=== PATIENT | female | born 1995 | race Caucasian/White ===

== ENCOUNTER 2017-08-09 18:36 | Emergency (ER) | payer OTHER, SELFPAY ==
--- NOTE | 2017-08-09 21:16 | ER ---
Nurse's Notes [facility] Name: Gale Ga Age: 22 yrs Sex: Female : 1995 Arrival Date: 08/09/2017 Time: 18:40 Bed Waiting Private MD: None, None Diagnosis: Presentation: 08/09 18:43 Presenting complaint: Patient states: upper and middle back pain that started today sv after lifting trash at work. Transition of care: patient was not received from another setting of care. Onset of symptoms was August 09, 2017. Risk Assessment: Do you want to hurt yourself or someone else? Patient reports no desire to harm self or others. Initial Sepsis Screen: Does the patient meet any 2 criteria? No. Patient's initial sepsis screen is negative. Does the patient have a suspected source of infection? No. Patient's initial sepsis screen is negative. Care prior to arrival: None. 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 - Social history:: Smoking status: Patient/guardian denies using tobacco. - Ebola Screening: : No symptoms or risks identified at this time. Vital Signs: 18:44 BP 108 / 64; Pulse 67; Resp 18; Temp 98.7; Pulse Ox 99% ; Weight 63.5 kg; Height 5 ft. sv 4 in. (162.56 cm); 18:44 Body Mass Index 24.03 (63.50 kg, 162.56 cm) sv ED Course: 18:40 Patient arrived in ED. mr 18:40 None, None is Private Physician. mr 18:44 Triage completed. sv 18:46 Arm band placed on left wrist. Patient placed in waiting room, Patient notified of wait sv time. Administered Medications: No medications were administered Outcome: 21:16 Eloped from waiting room, before seeing physician Time discovered patient gone: August 09, lp2017 at 21:16 21:16 Patient left the ED. lp1 Signatures: Bonnie Newsome RN RN Renee Isaac, Gema, RN RN lp1
[2017-08-09 21:33] VITALS: BP 108/64; TEMP 98.7; O2SAT 99
== END 2017-08-09 21:16 | disposition left against medical advice (07) ==
LOC: ER 18:36
DX: Z53.21 Procedure and treatment not carried out due to patient leaving prior to being seen by health care provider (principal)
CPT/HCPCS: 99281

== ENCOUNTER 2017-08-10 09:30 | Emergency (ER) | payer SELFPAY ==
[2017-08-10] MEDS ORDERED: CYCLOBENZAPRINE 10 MG TAB ONE (10:45)
[2017-08-10 11:00] LABS: Urine Blood 1+ (NEG); Urine Glucose NEGATIVE (NEG); Urine Protein NEGATIVE (NEG); Urine Specific Gravity 1.015 (1.005-1.030)
--- NOTE | 2017-08-10 11:26 | ER ---
Nurse's Notes [facility] Name: Gale Ga Age: 22 yrs Sex: Female : 1995 Arrival Date: 08/10/2017 Time: 09:32 Bed 20 Private MD: None, None Diagnosis: Muscle spasm of back Presentation: 08/10 09:42 Presenting complaint: Patient states: hurt her back at work yesterday while bending and iw picking up something heavy, pain between shoulder blades. Transition of care: patient was not received from another setting of care. Onset of symptoms was August 09, 2017. Risk Assessment: Do you want to hurt yourself or someone else? Patient reports no desire to harm self or others. Initial Sepsis Screen: Does the patient meet any 2 criteria? No. Patient's initial sepsis screen is negative. Does the patient have a suspected source of infection? No. Patient's initial sepsis screen is negative. Care prior to arrival: None. 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 - Social history:: Smoking status: Patient/guardian denies using tobacco. - Ebola Screening: : Patient negative for fever greater than or equal to 101.5 degrees Fahrenheit, and additional compatible Ebola Virus Disease symptoms Patient denies exposure to infectious person Patient denies travel to an Ebola-affected area in the 21 days before illness onset No symptoms or risks identified at this time. - Family history:: not pertinent. - Hospitalizations: : No recent hospitalization is reported. Screenin:48 Abuse screen: Denies threats or abuse. Denies injuries from another. Nutritional iw screening: No deficits noted. Tuberculosis screening: No symptoms or risk factors identified. Fall Risk None identified. Assessment: 09:47 General: Appears in no apparent distress. Behavior is calm, cooperative. Pain: iw Complains of pain in thoracic area Pain currently is 5 out of 10 on a pain scale. at worst was 10 out of 10 on a pain scale. Neuro: Level of Consciousness is awake, alert, obeys commands, Oriented to person, place, time, situation, Moves all extremities. Full function. Cardiovascular: Capillary refill < 3 seconds in bilateral fingers Patient's skin is warm and dry. Respiratory: Respiratory effort is even, unlabored, Respiratory pattern is regular, symmetrical. GI: No signs and/or symptoms were reported involving the gastrointestinal system. : No signs and/or symptoms were reported regarding the genitourinary system. Derm: Skin is pink, warm \T\ dry. normal. Musculoskeletal: Range of motion: intact in all extremities, Reports pain in back. 10:45 Reassessment: Patient appears in no apparent distress at this time. Patient and/or em family updated on plan of care and expected duration. Pain level reassessed. Patient is alert, oriented x 3, equal unlabored respirations, skin warm/dry/pink. 11:39 Reassessment: Patient appears in no apparent distress at this time. Patient and/or em family updated on plan of care and expected duration. Pain level reassessed. Patient is alert, oriented x 3, equal unlabored respirations, skin warm/dry/pink. request work note Patient states feeling better. Vital Signs: 09:44 BP 107 / 60; Pulse 61; Resp 18 S; Temp 97.8; Pulse Ox 100% on R/A; Weight 58.97 kg; iw Height 5 ft. 4 in. (162.56 cm); Pain 5/10; 10:30 BP 108 / 66; Pulse 67; Resp 16; Pulse Ox 100% on R/A; em 11:30 BP 106 / 62; Pulse 65; Resp 17; Pulse Ox 99% on R/A; em 09:44 Body Mass Index 22.31 (58.97 kg, 162.56 cm) iw ED Course: 09:32 Patient arrived in ED. mr 09:33 None, None is Private Physician. mr 09:44 Triage completed. iw 09:44 Arm band placed on. iw 09:46 Fred Jones LVN is Primary Nurse. em 10:20 Manju Reyes FNP is PHCP. kav 10:20 Cesar Sidhu MD is Attending Physician. kav 11:15 Patient has correct armband on for positive identification. Bed in low position. Call em light in reach. Side rails up X2. Adult w/ patient. 11:21 No provider procedures requiring assistance completed. Patient did not have IV access em during this emergency room visit. Administered Medications: 10:50 Drug: Cyclobenzaprine 10 mg Route: PO; em 11:39 Follow up: Response: No adverse reaction em Outcome: 11:25 Discharge ordered by MD. grey 11:40 Discharged to home ambulatory. em 11:40 Condition: good 11:40 Discharge instructions given to patient, Instructed on discharge instructions, follow up and referral plans. no drinking with medication, no driving heavy equipment, medication usage, Demonstrated understanding of instructions, follow-up care, medications, Prescriptions given X 1. 11:41 Patient left the ED. em Signatures: Manju Reyes, Renee Theodore mr Fred Jones, VICE PRESIDENT SUPPLY CHAIN VICE PRESIDENT SUPPLY CHAIN Kelly De Los Santos, RN RN iw
--- NOTE | 2017-08-10 11:26 | EDPHYS ---
Physician Documentation [facility] Name: Gale Ga Age: 22 yrs Sex: Female : 1995 Arrival Date: 08/10/2017 Time: 09:32 Bed 20 Private MD: None, None ED Physician Cesar Sidhu HPI: 08/10 10:21 This 22 yrs old Female presents to ER via Ambulatory with complaints of Back kav Pain. 10:26 The patient presents with pain that is acute. The patient presents with pain that is kav acute. The symptoms are located in the. The symptoms are located in the T6, T7 and T8. Onset: The symptoms/episode began/occurred acutely, just prior to arrival. Associated signs and symptoms: The patient has no apparent associated signs or symptoms. The problem was sustained when lifting furniture. Modifying factors: The patient symptoms are alleviated by nothing, the patient symptoms are aggravated by movement. Severity of symptoms: At their worst the symptoms were mild, just prior to arrival. The patient has not experienced similar symptoms in the past. 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 - Social history:: Smoking status: Patient/guardian denies using tobacco. - Ebola Screening: : Patient negative for fever greater than or equal to 101.5 degrees Fahrenheit, and additional compatible Ebola Virus Disease symptoms Patient denies exposure to infectious person Patient denies travel to an Ebola-affected area in the 21 days before illness onset No symptoms or risks identified at this time. - Family history:: not pertinent. - Hospitalizations: : No recent hospitalization is reported. ROS: 10:27 Constitutional: Negative for fever, chills, and weight loss, Eyes: Negative for injury, kav pain, redness, and discharge, ENT: Negative for injury, pain, and discharge, Neck: Negative for injury, pain, and swelling, Cardiovascular: Negative for chest pain, palpitations, and edema, Respiratory: Negative for shortness of breath, cough, wheezing, and pleuritic chest pain, Abdomen/GI: Negative for abdominal pain, nausea, vomiting, diarrhea, and constipation, Back: Negative for injury and pain, : Negative for injury, bleeding, discharge, and swelling, Skin: Negative for injury, rash, and discoloration, Neuro: Negative for headache, weakness, numbness, tingling, and seizure, Psych: Negative for depression, anxiety, suicide ideation, homicidal ideation, and hallucinations, Allergy/Immunology: Negative for hives, rash, and allergies, Endocrine: Negative for neck swelling, polydipsia, polyuria, polyphagia, and marked weight changes, Hematologic/Lymphatic: Negative for swollen nodes, abnormal bleeding, and unusual bruising. 10:27 Constitutional: Positive for 10:27 MS/extremity: Positive for pain, of the back and T8 and T7 and T6. Exam: 10:27 Constitutional: This is a well developed, well nourished patient who is awake, alert, kav and in no acute distress. Head/Face: Normocephalic, atraumatic. Eyes: Pupils equal round and reactive to light, extra-ocular motions intact. Lids and lashes normal. Conjunctiva and sclera are non-icteric and not injected. Cornea within normal limits. Periorbital areas with no swelling, redness, or edema. ENT: Nares patent. No nasal discharge, no septal abnormalities noted. Tympanic membranes are normal and external auditory canals are clear. Oropharynx with no redness, swelling, or masses, exudates, or evidence of obstruction, uvula midline. Mucous membranes moist. Neck: Trachea midline, no thyromegaly or masses palpated, and no cervical lymphadenopathy. Supple, full range of motion without nuchal rigidity, or vertebral point tenderness. No Meningismus. Chest/axilla: Normal chest wall appearance and motion. Nontender with no deformity. No lesions are appreciated. Cardiovascular: Regular rate and rhythm with a normal S1 and S2. No gallops, murmurs, or rubs. Normal PMI, no JVD. No pulse deficits. Respiratory: Lungs have equal breath sounds bilaterally, clear to auscultation and percussion. No rales, rhonchi or wheezes noted. No increased work of breathing, no retractions or nasal flaring. Abdomen/GI: Soft, non-tender, with normal bowel sounds. No distension or tympany. No guarding or rebound. No evidence of tenderness throughout. Back: No spinal tenderness. No costovertebral tenderness. Full range of motion. Skin: Warm, dry with normal turgor. Normal color with no rashes, no lesions, and no evidence of cellulitis. Neuro: Awake and alert, GCS 15, oriented to person, place, time, and situation. Cranial nerves II-XII grossly intact. Motor strength 5/5 in all extremities. Sensory grossly intact. Cerebellar exam normal. Normal gait. Psych: Awake, alert, with orientation to person, place and time. Behavior, mood, and affect are within normal limits. 10:27 Musculoskeletal/extremity: ROM: full active range of motion, full passive range of motion, Joints: All joints appear normal with full range of motion. Vital Signs: 09:44 BP 107 / 60; Pulse 61; Resp 18 S; Temp 97.8; Pulse Ox 100% on R/A; Weight 58.97 kg; iw Height 5 ft. 4 in. (162.56 cm); Pain 5/10; 10:30 BP 108 / 66; Pulse 67; Resp 16; Pulse Ox 100% on R/A; em 11:30 BP 106 / 62; Pulse 65; Resp 17; Pulse Ox 99% on R/A; em 09:44 Body Mass Index 22.31 (58.97 kg, 162.56 cm) iw MDM: 10:21 Patient medically screened. ka 10:27 Data reviewed: vital signs, nurses notes. [facility] 08/10 10:43 Order name: Urine Dipstick--Ancillary (enter results); Complete Time: 11:20 ag 08/10 11:20 Interpretation: Normal except: UBLD 1+; UESTR 1+. [facility] 08/10 10:43 Order name: Urine --Ancillary (enter results); Complete Time: 11:20 ag 08/10 11:20 Interpretation: Within normal limits. 08/10 10:26 Order name: Urine Dipstick-Ancillary (obtain specimen); Complete Time: 10:37 ka 08/10 10:26 Order name: Urine Test (obtain specimen); Complete Time: 10:37 kav Administered Medications: 10:50 Drug: Cyclobenzaprine 10 mg Route: PO; em 11:39 Follow up: Response: No adverse reaction em Disposition: 12:17 Co-signature as Attending Physician, Cesar Sidhu MD I agree with the assessment and kdr plan of care. Disposition: 08/10/17 11:25 Discharged to Home. Impression: Muscle spasm of back. - Condition is Stable. - Discharge Instructions: Muscle Cramps and Spasms, [id number]. - Prescriptions for Cyclobenzaprine 5 mg Oral Tablet - take 1 tablet by ORAL route 3 times per day As needed; 15 tablet. - Medication Reconciliation Form, Thank You Letter, Antibiotic Education, Prescription Opioid Use, Work release form form. - Follow up: Private Physician; When: 5 - 6 days; Reason: If symptoms return, Recheck today's complaints, Continuance of care, Re-evaluation by your physician. - Problem is new. - Symptoms are unchanged. Signatures: Dispatcher [employer] Cesar Villafana MD MD kdr Vern, Katherine, AGRICULTURAL PURCHASING AGENT AGRICULTURAL PURCHASING AGENT Fred Kimbrough, DENTURES LAB TECHNICIAN DENTURES LAB TECHNICIAN em Kelly Babb, RN RN iw Corrections: (The following items were deleted from the chart) 11:21 11:20 UBLD 1+; UESTR 1+. matilda grey 11:41 11:25 08/10/2017 11:25 Discharged to Home. Impression: Muscle spasm of back. Condition em is Stable. Forms are Medication Reconciliation Form, Thank You Letter, Antibiotic Education, Prescription Opioid Use. Follow up: Private Physician; When: 5 - 6 days; Reason: If symptoms return, Recheck today's complaints, Continuance of care, Re-evaluation by your physician. Problem is new. Symptoms are unchanged. kabrianda
[2017-08-10 11:48] VITALS: TEMP 97.8
[2017-08-10 11:50] VITALS: BP 106/62; O2SAT 99
== END 2017-08-10 11:41 | disposition home or self-care (01) ==
LOC: ER 09:30
DX: M62.830 Muscle spasm of back (principal)
CPT/HCPCS: 81003; 81025; 99283

== ENCOUNTER 2019-03-15 12:22 | Emergency (ER) | payer OTHER, SELFPAY ==
--- OUTSIDE RECORDS SUMMARY | 2019-03-15 12:26 | XMS REPORT ---
:1995 [facility] Address [address] [place] [address] Dr. De La Rosa [address] [place] [id number] Care Team Providers Name Role Phone Unavailable Unavailable Unavailable Problems This patient has no known problems. Allergies, Adverse Reactions, Alerts This patient has no known allergies or adverse reactions. Medications This patient has no known medications.
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
--- OUTSIDE RECORDS SUMMARY | 2019-03-15 12:26 | XMS REPORT | Summary of Care ---
:1995 Author Organization [facility] Address [address] [place] [address] Care Team Providers Name Role Phone Mamie Reyes Primary Care Provider Encounter Details Date Type Department Care Team Description 11/16/2018 Orders Only [facility] Doctor Unassigned, No [address] [facility] [place] [address] [address] [place] [address] Allergies Not on Filedocumented as of this encounter (statuses as of 11/16/2018) Medications Not on filedocumented as of this encounter (statuses as of 11/16/2018) Active Problems Not on filedocumented as of this encounter (statuses as of 11/16/2018) Social History Tobacco Use Types Packs/Day Years Used Date Never Assessed Sex Assigned at Date Recorded Not on file Job Start Date Occupation Industry Not on file Not on file Not on file Travel History Travel Start Travel End No recent travel history available. documented as of this encounter Last Filed Vital Signs Not on filedocumented in this encounter Plan of Treatment Date Type Specialty Care Team Description 11/16/2018 Initial Visit [facility] Mamie Reyes, AYAD [address] [place] [address] [phone] Health Maintenance Due Date Last Done Comments [...] Procedure Name Priority Date/Time Associated Diagnosis Comments ASSIGNMENT OF BENEFITS Routine 11/16/2018 12:53 PM CDT documented in this encounter Results Not on filedocumented in this encounter Insurance Payer Benefit Plan / Subscriber ID Effective Phone Address Type Group Dates [employer] xxxxxxxxx 2018-Manohar [place] [id number] [place] [address] documented as of this encounter
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
--- OUTSIDE RECORDS SUMMARY | 2019-03-15 12:26 | XMS REPORT | Summary of Care ---
:[address] [facility] Address [address] [place] [address] Care Team Providers Name Role Phone Mamie Reyes [facility] Primary Care Provider Adilia Chacon Insurance [employer] Reason for Visit Reason Comments ULTRASOUND (Routine) Status Reason Specialty Diagnoses / Referred By Referred To Procedures Contact Contact Closed Maternal Diagnoses Supervision of high risk , antepartum Mamie Reyes Medicine Procedures CONSULT MATERNAL MEDICINE ULTRASOUND R, LAMINATOR HAND [address] [place] [address] Encounter Details Date Type Department Care Team Description 11/29/2018 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 Dc, Encounter for Ultrasound- Mumtaz Cutler MD screening [address] for malformation using [place], [place] [address] ultrasound [address] [place], [place] [phone] [address] Allergies No Known Allergiesdocumented as of this encounter (statuses as of 11/29/2018) Medications Medication Sig Dispensed Refills Start Date End Date Status vit Take 1 Packet by 30 Each 6 11/16/2018 Active 95-tclc-rdfht-dha mouth daily. (SELECT-OB + DHA) 29 mg [...] Description 12/04/2018 Routine Visit OB Satellites Faculty, [facility] Health Maintenance Due Date Last Done Comments [...] Results Not on filedocumented in this encounter Visit Diagnoses Diagnosis Encounter for screening for malformation using ultrasound documented in this encounter Insurance Payer Benefit Plan / Subscriber ID Effective Phone Address Type Group Dates [employer] xxxxxxxxx 2018-[address] [address] [place] [address] [place] [address] documented as of this encounter Advance Directives Name Relationship Healthcare Agent Relationship Communication Joanne Padilla Mother First alternate healthcare agent
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
--- OUTSIDE RECORDS SUMMARY | 2019-03-15 12:26 | XMS REPORT | Summary of Care ---
:1995 Author Organization [facility] Address [address] [place] [address] Care Team Providers Name Role Phone Mamie Reyes [facility] Primary Care Provider Adilia Chacon Insurance Hmo Reason for Visit Reason Comments ULTRASOUND (Routine) Status Reason Specialty Diagnoses / Referred By Referred To Procedures Contact Contact Closed Maternal Diagnoses Supervision of high risk , antepartum Mamie Reyes Medicine Procedures CONSULT MATERNAL MEDICINE ULTRASOUND R, DYE REEL OPERATOR [address] [place] [address] Encounter Details Date Type Department Care Team Description 11/29/2018 Insole Reinforcer Visit [facility] Dc, Encounter for Ultrasound- Mumtaz Cutler MD screening [address] for malformation using [place], [place] [address] ultrasound [address] [place], [place] [phone] [address] Allergies No Known Allergiesdocumented as of this encounter (statuses as of 11/29/2018) Medications Medication Sig Dispensed Refills Start Date End Date Status vit Take 1 Packet by 30 Each 6 11/16/2018 Active 34-mweb-wemty-dha mouth daily. (SELECT-OB + DHA) 29 mg [...] 12/04/2018 Routine Visit OB Satellites Faculty, [facility] Health Maintenance Due Date Last Done [...] [address] [place] [address] [place] [address] documented as of this encounter Advance Directives Name Relationship Healthcare Agent Relationship Communication Joanne Padilla Mother First alternate healthcare agent
[2019-03-15 13:06] LABS: ALT/SGPT 14 U/L (12-78); AST/SGOT 14 U/L (15-37); Absolute Lymphocytes (CBC) 0.4 K/uL (0.7-4.9); Albumin 2.3 g/dL (3.4-5.0); Alkaline Phosphatase 126 U/L (45-117); BUN Blood Urea Nitrogen 7 mg/dL (7-18); Basophils % 0.3 % (0-1.3); Bicarbonate 24 mmol/L (21-32); Bilirubin Direct < 0.1 mg/dL (0-0.2); Bilirubin Total 0.4 mg/dL (0.2-1.0); Glucose Level 104 mg/dL (74-106); Lipase 39 U/L (73-393); Lymphocytes % 2.4 % (15.3-44.8); Potassium 3.5 mmol/L (3.5-5.1); Protein, Total 6.3 g/dL (6.4-8.2); RBC Red Blood Cell Count 3.05 M/uL (3.86-4.86); Sodium Level 140 mmol/L (136-145)
[2019-03-15] MEDS ORDERED: METOCLOPRAMIDE 10 MG/2mL INJ ONE (13:16)
[2019-03-15] MEDS ORDERED: NA CHLORIDE 0.9% 1,000 ML ONE (13:16)
[2019-03-15] MEDS ORDERED: DIPHENHYDRAMINE 50 MG/ML VIAL ONE (13:16)
[2019-03-15 13:50] LABS: Blood Morphology Comment NOT SEEN (NOT SEEN); Platelet Estimate ADEQ; Toxic Granulation 1+
[2019-03-15 14:22] LABS: Urine Blood 3+ (NEG); Urine Glucose NEGATIVE (NEG); Urine Protein NEGATIVE (NEG); Urine Specific Gravity >1.030 (1.005-1.030); Urine pH 5.5 (5.0-7.0)
--- NOTE | 2019-03-15 14:25 | RAD REPORT ---
EXAM DESCRIPTION: CT - Abdomen Pelvis W Contrast - 03/15/2019 2:00 pm CLINICAL HISTORY: ABD PAIN, 2 days earlier COMPARISON: No comparisons TECHNIQUE: Biphasic, helical CT imaging of the abdomen and pelvis was performed following 100 ml non -ionic IV contrast. No oral contrast given. All CT scans are performed using dose optimization technique as appropriate and may include automated exposure control or mA/KV adjustment according to patient size. FINDINGS: No suspicious findings in the lung bases. The liver, spleen, and pancreas show no suspicious findings. Gallbladder and biliary tree are also wi thout suspicious finding. Renal function is symmetric. There is mild dilatation of the right-sided collecting system. This is p robably extrinsic compression of the right ureter from the still enlarged uterus. No pyelonephritis o r acute parenchymal process. Urinary bladder is contracted. No adrenal abnormalities. Fluid filled, nondilated stomach noted. No gastric wall thickening or mass. Numerous distended and di lated fluid-filled small bowel loops are present. This extends down to the ileocecal valve. Fluid-cathie led, distended cecum and ascending colon noted. Left side of the colon is decompressed but does conta in fluid. No abrupt transition point seen. This is most likely a pronounced postoperative ileus. Acut e bowel obstruction is not suspected. No free air or pneumatosis. Significant free intraperitoneal air is present not unexpected for the recent . No abscess o r abnormal fluid collections seen. Uterus is enlarged, not unexpected for recent status. T race amount of air is present in the inferior aspect of the endometrial cavity. This is not unexpecte d for . Postsurgical changes are noted to the anterior abdominal wall. No abnormal abdominal wall hematoma. Fluid and stranding in the subcutaneous fatty tissues would be normal for recent surg holly. No suspicious bony findings. Postsurgical changes are noted to the left ilium and sacrum. Large bone screw extends across the SI joint. IMPRESSION: Distended and dilated small bowel loops from the ligament of Treitz to terminal ileum. T here is fluid-filled distended right-side of the colon. No abrupt bowel transition. Pronounced postoperative ileus is favored over obstruction. Enlarged uterus not unexpected for status. Punctate air within the lower portion of the en dometrial cavity also within normal limits. No abscess or surgical complication seen. The air, fluid and stranding changes in the subcutaneous fa t, anterior abdominal wall and peritoneal space all normal for recent surgery.
--- NOTE | 2019-03-15 14:59 | ER ---
Nurse's Notes [facility] Name: Gale Ga Age: 24 yrs Sex: Female : 1995 Arrival Date: 03/15/2019 Time: 12:23 Bed 7 Private MD: Diagnosis: Ileus, unspecified;Lower abdominal pain, unspecified Presentation: 03/15 12:23 Presenting complaint: N/V/D and diffuse abdominal pain since last night. Pt is 2 days hb s/p c section, done at [facility]. Phenergan 12.5 IVP and NS 300mls administered to 20 G RAC [employer]ANSCRIBER. Transition of care: patient was not received from another setting of care. Onset of symptoms was March 15, 2019. Risk Assessment: Do you want to hurt yourself or someone else? Patient reports no desire to harm self or others. Initial Sepsis Screen: Does the patient meet any 2 criteria? No. Patient's initial sepsis screen is negative. Does the patient have a suspected source of infection? No. Patient's initial sepsis screen is negative. Care prior to arrival: IV initiated. 20 GA, in the right antecubital area, Glucose check: 103. 12:23 Method Of Arrival: EMS: [facility] hb 12:23 Acuity: DEEJAY 3 hb Historical: - Allergies: 12:26 NKA; hb - Home Meds: 12:26 None [Active]; hb - PMHx: 12:26 None; hb - PSHx: 12:26 ; hb - Immunization history:: Adult Immunizations up to date. - Social history:: Smoking status: Patient/guardian denies using tobacco. - Ebola Screening: : No symptoms or risks identified at this time. Screenin:26 Abuse screen: Denies threats or abuse. Denies injuries from another. Nutritional hb screening: No deficits noted. Tuberculosis screening: No symptoms or risk factors identified. Fall Risk None identified. Assessment: 12:30 General: Appears in no apparent distress. uncomfortable, Behavior is calm, cooperative, aj1 appropriate for age. Pain: Complains of pain in abdomen Pain does not radiate. Pain currently is 9 out of 10 on a pain scale. Quality of pain is described as sharp. Neuro: Level of Consciousness is awake, alert, obeys commands, Oriented to person, place, time, situation. Cardiovascular: Patient's skin is warm and dry. Respiratory: Airway is patent Respiratory effort is even, unlabored, Respiratory pattern is regular, symmetrical. GI: Abdomen is non-distended, Bowel sounds present X 4 quads. Abd is soft X 4 quads Abdomen is tender to palpation X 4 quads. Reports lower abdominal pain, upper abdominal pain, diarrhea, nausea, vomiting. : No signs and/or symptoms were reported regarding the genitourinary system. EENT: No signs and/or symptoms were reported regarding the EENT system. Derm: No signs and/or symptoms reported regarding the dermatologic system. Skin is pink, warm \T\ dry. normal, Incision is well approximated, no redness, swelling or drainage noted. Musculoskeletal: No signs and/or symptoms reported regarding the musculoskeletal system. Circulation, motion, and sensation intact. 13:30 Reassessment: Patient appears in no apparent distress at this time. No changes from aj1 previously documented assessment. Patient and/or family updated on plan of care and expected duration. Pain level reassessed. Patient is alert, oriented x 3, equal unlabored respirations, skin warm/dry/pink. 14:10 Reassessment: Patient appears in no apparent distress at this time. No changes from aj1 previously documented assessment. Patient and/or family updated on plan of care and expected duration. Pain level reassessed. Patient is alert, oriented x 3, equal unlabored respirations, skin warm/dry/pink. 15:06 Reassessment: Patient appears in no apparent distress at this time. No changes from aj1 previously documented assessment. Patient and/or family updated on plan of care and expected duration. Pain level reassessed. Patient is alert, oriented x 3, equal unlabored respirations, skin warm/dry/pink. 15:12 Reassessment: REPORT TO LONI HAMMOND AT [facility] L\T\D TRIAGE. TRANSPORT PENDING. bp 15:37 Reassessment: [facility] AT B/S. bp Vital Signs: 12:26 BP 119 / 79; Pulse 88; Resp 16; Temp 98.2; Pulse Ox 100% ; Weight 63.5 kg; Height 5 ft. hb 4 in. (162.56 cm); Pain 6/10; 12:30 BP 117 / 85; Pulse 94; Resp 18; Pulse Ox 100% on R/A; aj1 13:30 BP 117 / 93; Pulse 94; Resp 18; Pulse Ox 100% on R/A; aj1 14:30 BP 124 / 83; Pulse 85; Resp 18; Pulse Ox 100% on R/A; aj1 15:30 BP 121 / 85; Pulse 89; Resp 16; Temp 98.5; Pulse Ox 100% ; bp 12:26 Body Mass Index 24.03 (63.50 kg, 162.56 cm) hb ED Course: 12:23 Patient arrived in ED. hb 12:25 Triage completed. hb 12:26 Arm band placed on. hb 12:26 Patient has correct armband on for positive identification. Bed in low position. Call hb light in reach. Side rails up X 1. 12:28 More De La O, MANISH is Primary Nurse. aj1 12:30 No provider procedures requiring assistance completed. aj1 12:39 Ayaz Hilliard PA is PHCP. [facility] 12:39 Cesar Sidhu MD is Attending Physician. [facility] 13:38 Urine collected: clean catch specimen, blood tinged. ms 14:01 CT Abd/Pelvis - IV Contrast Only In Process Unspecified. EDMS 15:07 Maintain EMS IV. Dressing intact. Good blood return noted. Site clean \T\ dry. Gauge \T\ aj 1 site: 20g to left AC. 15:37 Patient transferred, IV remains in place. bp Administered Medications: 13:21 Drug: Reglan 10 mg Route: IVP; Site: right antecubital; aj1 15:47 Follow up: Response: Nausea is decreased bp 13:21 Drug: NS 0.9% 1000 ml Route: IV; Rate: 1 bolus; Site: right antecubital; aj1 15:47 Follow up: IV Status: Completed infusion; IV Intake: 1000ml bp 13:22 Drug: diphenhydrAMINE 12.5 mg Route: IVP; Site: right antecubital; aj1 15:47 Follow up: Response: Nausea is decreased bp Intake: 15:47 IV: 1000ml; Total: 1000ml. bp Outcome: 14:57 ER care complete, transfer ordered by . [facility] 15:37 Transferred by ground EMS to [facility], Transfer form bp completed. 15:37 Condition: stable 15:37 Instructed on the need for transfer. 15:48 Patient left the ED. bp Signatures: Dispatcher [employer] More Chino RN RN aj1 Ayaz Hilliard PA PA jmm Villarreal, Maria ms Baxter, Heather, RN RN hb Wai Turner RN RN bp
--- NOTE | 2019-03-15 14:59 | EDPHYS ---
Physician Documentation [facility] Name: Gale Ga Age: 24 yrs Sex: Female : 1995 Arrival Date: 03/15/2019 Time: 12:23 Bed 7 Private MD: ED Physician Cesar Sidhu HPI: 03/15 13:02 This 24 yrs old Female presents to ER via EMS with complaints of jmm Nausea/Vomiting/Diarrhea, Abdominal Pain. 13:02 The patient presents to the emergency department with nausea, vomiting, diarrhea, jmm abdominal pain. Onset: The symptoms/episode began/occurred gradually, 1 day(s) ago. Possible causes: unknown. Associated signs and symptoms: Pertinent positives: abdominal pain, diarrhea, vomiting. This is a 24 year old female with no chronic medical conditions that is s/p 2 days prior. patient complains of vomiting and diarrhea beginning yesterday. Patient also complains of pain at her incision site. . Historical: - Allergies: 12:26 NKA; hb - Home Meds: 12:26 None [Active]; hb - PMHx: 12:26 None; hb - PSHx: 12:26 ; hb - Immunization history:: Adult Immunizations up to date. - Social history:: Smoking status: Patient/guardian denies using tobacco. - Ebola Screening: : No symptoms or risks identified at this time. ROS: 13:02 Constitutional: Negative for fever, chills, and weight loss, Cardiovascular: Negative jmm for chest pain, palpitations, and edema, Respiratory: Negative for shortness of breath, cough, wheezing, and pleuritic chest pain. 13:02 Abdomen/GI: Positive for abdominal pain, nausea and vomiting, diarrhea. 13:02 All other systems are negative. Exam: 13:02 Constitutional: This is a well developed, well nourished patient who is awake, alert, jmm and in no acute distress. Head/Face: atraumatic. Eyes: EOMI, no conjunctival erythema appreciated ENT: Moist Mucus Membranes Neck: Trachea midline, Supple Chest/axilla: Normal chest wall appearance and motion. Cardiovascular: Regular rate and rhythm. No edema appreciated Respiratory: Normal respirations, no respiratory distress appreciated 13:02 Skin: General appearance color normal MS/ Extremity: Moves all extremities, no obvious deformities appreciated, no edema noted to the lower extremities Neuro: Awake and alert, normal gait Psych: Behavior is normal, Mood is normal, Patient is cooperative and pleasant 13:02 Abdomen/GI: Inspection: abdomen appears normal, closed incision noted to the suprapubic region, no erythema, induration or purulent drainage is appreciated. . Vital Signs: 12:26 BP 119 / 79; Pulse 88; Resp 16; Temp 98.2; Pulse Ox 100% ; Weight 63.5 kg; Height 5 ft. hb 4 in. (162.56 cm); Pain 6/10; 12:30 BP 117 / 85; Pulse 94; Resp 18; Pulse Ox 100% on R/A; aj1 13:30 BP 117 / 93; Pulse 94; Resp 18; Pulse Ox 100% on R/A; aj1 14:30 BP 124 / 83; Pulse 85; Resp 18; Pulse Ox 100% on R/A; aj1 15:30 BP 121 / 85; Pulse 89; Resp 16; Temp 98.5; Pulse Ox 100% ; bp 12:26 Body Mass Index 24.03 (63.50 kg, 162.56 cm) hb MDM: 12:[address] [facility] 14:56 Data reviewed: vital signs, nurses notes. Counseling: I had a detailed discussion with tona the patient and/or guardian regarding: the historical points, exam findings, and any diagnostic results supporting the discharge/admit diagnosis, radiology results, the need to transfer to another facility. ED course: I discussed the patient with Dr. Cordero whom accepted transfer. . 03/15 12:36 Order name: Basic Metabolic Panel; Complete Time: 13:30 03/15 12:36 Order name: CBC with Diff; Complete Time: 13:51 03/15 12:36 Order name: Creatinine for Radiology; Complete Time: 13:30 03/15 12:36 Order name: Hepatic Function; Complete Time: 13:30 03/15 12:36 Order name: Lipase; Complete Time: 13:30 03/15 13:50 Order name: Manual Differential; Complete Time: 13:51 EDFL 03/15 12:36 Order name: IV Saline Lock; Complete Time: 12:36 03/15 12:36 Order name: Labs collected and sent; Complete Time: 12:36 03/15 12:56 Order name: CT Abd/Pelvis - IV Contrast Only; Complete Time: 14:[address] [facility] 03/15 14:01 Order name: Urine Dipstick--Ancillary (enter results); Complete Time: 14:24 [facility] 03/15 14:01 Order name: Urine --Ancillary (enter results); Complete Time: 14:24 [facility] 03/15 13:29 Order name: Urine Dipstick-Ancillary (obtain specimen); Complete Time: 13:[address] [facility] 03/15 13:29 Order name: Urine Test (obtain specimen); Complete Time: 13:[address] [facility] Administered Medications: 13:21 Drug: Reglan 10 mg Route: IVP; Site: right antecubital; [facility] 15:47 Follow up: Response: Nausea is decreased bp 13:21 Drug: NS 0.9% 1000 ml Route: IV; Rate: 1 bolus; Site: right antecubital; [facility] 15:47 Follow up: IV Status: Completed infusion; IV Intake: 1000ml bp 13:22 Drug: diphenhydrAMINE 12.5 mg Route: IVP; Site: right antecubital; [facility] 15:47 Follow up: Response: Nausea is decreased bp Disposition: 16:34 Co-signature as Attending Physician, Cesar Sidhu MD I agree with the assessment and kdr plan of care. Disposition: 03/15/19 14:57 Transfer ordered to [facility]. Diagnosis are Ileus, unspecified, Lower abdominal pain, unspecified. - Reason for transfer: Higher level of care. - Accepting physician is Dc. - Condition is Stable. - Problem is new. - Symptoms have improved. Signatures: Dispatcher [employer] EDMore Hale RN RN aj1 Cesar Sidhu MD MD kdr Mickail, Joel, PA PA [facility] Amanda Cifuentes RN RN Wai Goodrich RN RN bp Corrections: (The following items were deleted from the chart) 15:09 14:57 03/15/2019 14:57 Transfer ordered to [facility]. Diagnosis is Ileus, jmm unspecified; Lower abdominal pain, unspecified. Reason for transfer: Higher level of care. Accepting physician is Gil. Condition is Stable. Problem is new. Symptoms have improved. tona 15:48 15:09 03/15/2019 14:57 Transfer ordered to [facility]. Diagnosis is Ileus, bp unspecified; Lower abdominal pain, unspecified. Reason for transfer: Higher level of care. Accepting physician is Dc. Condition is Stable. Problem is new. Symptoms have improved. tona
[2019-03-15 15:54] VITALS: O2SAT 100
[2019-03-15 16:02] VITALS: BP 121/85; TEMP 98.5
== END 2019-03-15 15:48 | disposition short-term general hospital (02) ==
LOC: ER 12:22
DX: K56.7 Ileus, unspecified (principal)
CPT/HCPCS: 96361; 85025; 80048; 36415; 81025; 80076; 81003; 83690; 74177; 96375; 96374; 99285; Q9967; J2765; J1200; J7030

== ENCOUNTER 2020-01-25 11:16 | Emergency (ER) | payer OTHER ==
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
--- OUTSIDE RECORDS SUMMARY | 2020-01-25 11:22 | XMS REPORT | Continuity of Care Document ---
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 Observation Time Observation Value Comments Source Systolic (mm Hg) 2018-03-27 20:56:00 Billy rial [place] Diastolic (mm Hg) 2018-03-27 20:56:00 Mem orial [place] Respitory Rate 2018-03-27 20:56:00 Memori al [place] Heart Rate 2018-03-27 20:56:00 [facility] [place] Weight 2018-03-27 18:38:00 [facility] [place] BMI Calculated 2018-03-27 18:38:00 [facility] [place] Height 2018-03-27 18:38:00 160.02 cm [facility] [place] Temperature Oral (F) 2018-03-27 18:38:00 99.1 F [facility] [place] Respitory Rate 2018-03-27 18:38:00 Memori al [place] Heart Rate 2018-03-27 18:38:00 [facility] [place] Systolic (mm Hg) 2018-03-27 18:38:00 Billy rial [place] Diastolic (mm Hg) 2018-03-27 18:38:00 Mem orial [place] Heart Rate 2017-10-10 00:27:00 [facility] [place] Systolic (mm Hg) 2017-10-10 00:27:00 Billy rial [place] Diastolic (mm Hg) 2017-10-10 00:27:00 Mem orial [place] Temperature Oral (F) 2017-10-10 00:27:00 98.8 F [facility] [place] Respitory Rate 2017-10-10 00:27:00 Memori al [place] Temperature Oral (F) 2017-10-09 20:34:00 98 F [facility] [place] Heart Rate 2017-10-09 20:34:00 [facility] [place] Systolic (mm Hg) 2017-10-09 20:34:00 Billy rial [place] Diastolic (mm Hg) 2017-10-09 20:34:00 Mem orial [place] Respitory Rate 2017-10-09 20:34:00 Memori al [place] Temperature Oral (F) 2017-10-09 16:45:00 98 F [facility] [place] Respitory Rate 2017-10-09 16:45:00 [facility] al [place] Heart Rate 2017-10-09 16:45:00 [facility] [place] Systolic (mm Hg) 2017-10-09 16:45:00 Billy rial [place] Diastolic (mm Hg) 2017-10-09 16:45:00 Mem orial [place] Height 2017-10-01 17:33:00 [facility]56 [facility] 2017-10-01 17:33:00 [facility] BMI Calculated 2017-10-01 17:33:00 [place] Weight 2017-09-30 13:10:00 [facility] Procedures Procedure Date / Time Performed Performing Clinician Sour e [U] XRAY PELVIS MIN 3 2019-07-09 00:00:00 [facility] [id number] Physicians [U] XRAY PELVIS MIN 3 2018-09-11 [id number] [U] XRAY PELVIS MIN 3 2018-03-17 00:00:00 [facility] [id number] Physicians [U] XRAY PELVIS MIN 3 2018-02-23 00:00[facility] [id number] Physicians [U] XRAY PELVIS MIN 3 2017-12-22 00:00:00 [facility] [id number] Physicians [U] XRAY PELVIS MIN 3 2017-11-16 00:00:00 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 [id number] [employer] [id number] MATERNAL [id number] & CHILD [address] [address] 2019-01-10 2019-01-10 [facility] [id number] Univers 11:30:00 11:30:00 t; BRITTNY VENTURA Trauma ity [facility] s BRITTNY VENTURA [facility] 2018-09-20 2018-09-20 BIPIN Brenner [facility] [id number] Univers 12:15:00 12:15:00 t; TOMMY VENTURAN ity [place], [place] 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, [employer]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 i ans 2018-09-20 2018-09-20 [facility] [id number] Univers 12:00:00 12:00:00 t; [facility] [place] [facility] 2018-03-27 2018-03-27 Outpatient WILLIS Swanson [facility] [id number] 12:31:00 15:16:00 Kristopher Blevins 2018-03-22 2018-03-22 [facility] [id number] Univers 12:15:00 12:15:00 t; TOMMY VENTURAN [place] AUDREY, [employer]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 i ans 2018-03-01 2018-03-01 [facility] [id number] Univers 11:45:00 11:45:00 t; TOMMY VENTURAN it[place] AUDREYTOMMYN Physic i ans 2017-12-28 2017-12-28 [facility] [id number] Univers 11:45:00 11:45:00 t; TOMMY VENTURAN [place] AUDREY 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 i ans 2017-11-23 2017-11-23 [facility] [id number] Univers 11:45:00 11:45:00 t; TOMMY VENTURAN [place] AUDREYTOMMYN Physic i ans 2017-10-26 2017-10-26 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 i ans 2017-09-30 2017-10-09 Outpatient Nima Ervin [facility] [id number] 08:10:00 20:10:00 Eloy Schwartz 2017-09-30 2017-10-09 Outpatient Nima Ervin [facility] [id number] 08:10:00 20:10:00 Eloy Schwartz Results Test Description Test Time Test Comments Results Result Comments Source CHEM PANEL 2018-03-27 123 [facility] nn 19:22:00 CHEM PANEL 2018-03-27 121 [facility] nn 19:22:00 CHEM PANEL 2018-03-27 14 [facility] nn 19:22:00 CHEM PANEL 2018-03-27 10 [facility] nn 19:22:00 CHEM PANEL 2018-03-27 106 [facility] nn 19:22:00 CHEM PANEL 2018-03-27 0.7 [facility] nn 19:22:00 CHEM PANEL 2018-03-27 27 [facility] nn 19:22:00 CHEM PANEL 2018-03-27 9.2 [facility] nn 19:22:00 CHEM PANEL 2018-03-27 8.2 [facility] nn 19:22:00 CHEM PANEL 2018-03-27 4.3 [facility] nn 19:22:00 CHEM PANEL 2018-03-27 8 [facility] nn 19:22:00 CHEM PANEL 2018-03-27 0.69 [facility] nn 19:22:00 CHEM PANEL 2018-03-27 138 [facility] nn 19:22:00 CHEM PANEL 2018-03-27 3.5 [facility] nn 19:22:00 CHEM PANEL 2018-03-27 103 [facility] nn 19:22:00 CHEM PANEL 2018-03-27 11.5 [facility] nn 19:22:00 CHEM PANEL 2018-03-27 19:22:00 Test Item Value Reference Range Interpretation Comme nts B/C Ratio (test code = B/C Ratio) 12 1 6-25 [facility]CHE[facility] WEQQY3002-04-81 19:22:003.9[facility]annCHEM PANEL 2018-03-27 19:22:00 Test Item Value Reference Range Interpretation Comments A/G Ratio (test code = A/G Ratio) 1.1 1 0.7-1.6 [facility] EocpboyRNRGAQHIDF7990-35-98 19:22:0010.8[facility]annHEMATOLOGY 2018-03-27 19:22:004.25[facility] DdgshwwEIDCLVOCIV1407-88-19 19:22:0012.6[facility] FazlppwWRSKZBVXXP5776-31-52 19:22:0037.5[facility] XwwvtwuGPJTTGRYTG4198-84-72 19:22:65476Apddgvog AvmndqcTOQSETWVLN4927-67-77 19:22:009.4[facility] FUZUUBLJEV6750-58-24 19:22:0088.3[facility] CozvgfeOUQFDPRZXT4540-31-76 19:22:00 Test Item Value Reference Range Interpretation Comments MCH (test code = MCH) 29.6 pg 27.0-31.0 [facility] XskqykaBZPNHPJDMZ8812-89-64 19:22:0015.2[facility]annHEMATOLOGY 2018-03-27 19:22:0033.6[facility] CgffngxDMMKDBXBII2090-38-23 19:22:001.0[facility] PkkxatpGKQBRLGMEP5097-05-78 19:22:000.1[facility] SmydvnuGUWPWNEAZI8970-80-63 19:22:009.2[facility] CgfoodkGCRSEILSPT8404-48-75 19:22:000.5[facility] [place] QCNQQNTRAB3943-00-15 19:22:0084.6[facility] UhhigeqXIBDHTSXXZ9180-05-40 19:22:00 5.0[facility] RwsogljVUHFPBYKIY9178-84-62 19:22:009.0[facility]annHEMATOLOGY 2018-03-27 19:22:001.2[facility] EdcjlcmHDJSFUCKAH8025-00-52 19:22:000.2[facility] LiiyoxdQTAFI5506-72-86 19:15:00Positive *ABN*(03/27/18 1:15 PM)[facility] [place] VIRAL - PPQGTDUE4453-59-51 19:15:00Negative (03/27/18 1:15 PM)[facility] VIRAL - JKNBHJRI5944-40-58 19:15:00Negative (03/27/18 1:15 PM)[facility] [place] URINE AND VILKE6700-15-71 18:50:0019[facility]ann[facility] AND VOONQ9749-58-65 18:50:00Large *ABN*(03/27/18 12:50 PM)[facility] QESGQ4582-26-75 18:50:00Negative (03/27/18 12:50 PM)[facility] FLTVF7253-90-46 18:50:003[facility] IUIPL5727-49-05 18:50:00 Test Item Value Reference Range Interpretation Comments UA Spec Grav (test code = UA Spec 1.025 1 Grav) [facility] HRMNA8408-50-33 18:50:00 Test Item Value Reference Range Interpretation Comments UA pH (test code = UA pH) 6.0 1 5.0-8.0 [facility] HBKKS1354-14-32 18:50:00Slight *ABN*(03/27/18 12:50 PM) [facility] DWABV7879-12-84 18:50:00Moderate *ABN*(03/27/18 12:50 PM)[facility] CDJKD9498-43-91 18:50:00Negative *NA*(03/27/18 12:50 PM)[facility] FMSXP3493-28-94 18:50:00Yellow *NA*(03/27/18 12:50 PM)[facility] EQOE7293-57-96 18:50:00Negative (03/27/18 12:50 PM) [facility] [place][U] XRAY PELVIS MIN 3 VWS [id number] 11:19:00Images acquired, not reported on this accession number.[facility] [U] XRAY PELVIS MIN 3 VWS [id number] 11:58:00Images acquired, not reported on this accession number.[facility] IyvfzxoectCVJICRVQXWRZ4828-11-78 10:35:0013.8[facility] MlernykKIKFUIIQLPKT1275-53-21 10:35:39969Vjmkvmfo [place] BEZZJUDMNGKW9402-01-42 10:35:0025[facility] TsrkheaUUKTEZEUHPRC7950-85-76 10:35:00 106[facility] LxupvliFODRUKGSNXRZ8123-47-89 10:35:008.8[facility] ZZWKGPHGACDV4228-94-40 10:35:003.8[facility] HunhwurCNFXOANZFBAN6641-81-61 10:35:74085Durthncv GdrnbpeGQEKSARSOAGG7852-84-54 10:35:0081[facility] [place] IZCHVAHVGZSO1240-79-71 10:35:000.32[facility] SzglyucGXNEITMAMRQI5676-08-62 10:35:009[facility] HgulxtoLLXWSDMGHY1495-20-58 10:35:008.5[facility] [place] IAYKRQAQTF4155-42-53 10:35:004.1[facility] XtzyvqpJLAYXTXRLL8995-73-58 10:35:00 2.78[facility] ZvfnqxeZDMAUQGGJR2512-21-22 10:35:008.4[facility] HermannHEMATOLOGY 2017-10-08 10:35:0024.6[facility] YmpjqblYXWMGCISTY9057-12-16 10:35:66609Ssjiqfjb XjdkftoPEVBGLSYDB6223-18-16 10:35:0088.8[facility] IajflavXLVXQKEAZF9901-03-31 10:35:00 Test Item Value Reference Range Interpretation Comments MCH (test code = MCH) 30.3 pg 27.0-31.0 [facility] MwycytlDMKXTRCBHJ0500-68-51 10:35:0034.2[facility]annHEMATOLOGY 2017-10-08 10:35:0016.0[facility] VylwpmoBFWOFMFDRB8967-42-83 10:35:001.0[facility] NaxijbjWHLUEWESHN8882-45-89 10:35:000.5[facility] EaqrczmOIKOSFLXHQ0599-73-32 10:35:000.1[facility] FbdkdqyNJMAGXMVXE3562-92-25 10:35:0059.1[facility] CLOZSFSKUH6804-02-80 10:35:0024.0[facility] OuccvfjFGWFKWTMPV5671-22-29 10:35:00 12.9[facility] LdjnecnOEIGZAFJKC9700-06-33 10:35:003.6[facility]annHEMATOLOGY 2017-10-08 10:35:000.4[facility] NdcvlewOQWHHHPBJC7987-55-51 10:35:002.4[facility] HermannBLOOD BANK KKCLYUG6187-13-86 21:41:00Negative (10/07/17 4:41 PM)[facility]annBLOOD BANK RKBYNWO8867-63-06 20:26:00Product available (10/07/17 3:26 PM) [facility]annCHEM ODULU8801-90-83 10:44:62018Cnthgfrl HermannCHEM PANEL 2017-10-07 10:44:0011[facility] HermannCHEM JZRRM9772-34-95 10:44:0079[facility] HermannCHEM ZQQMQ6554-51-32 10:44:008.5[facility] HermannCHEM OMXCA4633-94-05 10:44:003.6[facility] HermannCHEM AJUVK0885-39-65 10:44:28211Hckmcjzi HermannCHEM MHGKF1133-52-54 10:44:000.32[facility] HermannCHEM HFIEU8645-75-56 10:44:92557 [facility]annCHEM PLNBJ7375-63-39 10:44:0027[facility] HermannCHEM PANEL 2017-10-07 10:44:0012.6[facility] WvdzeerJIYNSPTVRI2628-21-22 10:44:0016.3[facility] KummyegHTUBFIIPRQ2479-47-92 10:44:008.8[facility] CdttgdhBJXGTGOSUC5527-12-66 10:44:28634Elvgerac BdzcqdvYFUMMQFOJI4494-71-58 10:44:0034.2[facility] [place] OTBLFBMYKJ9127-12-09 10:44:00 Test Item Value Reference Range Interpretation Comments MCH (test code = MCH) 30.9 pg 27.0-31.0 [facility] VmaxsxwWDVXPNEFDS2991-61-70 10:44:0020.2[facility] HermannHEMATOLOGY 2017-10-07 10:44:006.9[facility] JmxqgxdRDZWWSVKSC7191-33-94 10:44:0090.4[facility] PzoektwORFHHNUAYA4420-62-81 10:44:005.1[facility] GdoxdjhHLHAVAQEQZ2552-56-78 10:44:002.23[facility] UnfvulaITRKWNSUGN6018-37-33 10:44:000.2[facility] RFGVZRNEVI1243-65-38 10:44:000.6[facility] GrqdwevXLMRONKBTI0979-85-49 10:44:003.1 [facility] RpjfgleTZUDWVOKSO1682-00-18 10:44:000.2[facility] HermannHEMATOLOGY 2017-10-07 10:44:003.6[facility] VmdadloJWWGQSXYYR0078-89-76 10:44:000.7[facility] GjfsdmxDKBELALXKC4742-80-76 10:44:0012.1[facility] CsuukgdMOULZAJCYM0494-92-07 10:44:0014.3[facility] CkwlyiqFCLNOWJIDV7011-00-74 10:44:0070.3[facility] [place] CHEM EGCVL0506-03-94 11:14:004.0[facility] HermannCHEM PSTST8159-77-12 11:14:002.3 [facility] FucrepsKJBYBCTHQRYB2942-96-39 11:14:0014.5[facility] HermannELECTROLYTES 2017-10-06 11:14:78736Nmprhcue HuuxefjFUBTTVNWEAWG9480-84-25 11:14:008.7[facility] AafbpavGWZSADVKIDBN0204-14-14 11:14:96217Ddvjnihp JeaezgzBSZPQOXLJKTY0486-89-81 11:14:000.31[facility] PmcotnvTLMTQQCMJNNX8758-31-36 11:14:71659Xgqqrhec Bren[place] BPLBKNZBVGJB3806-80-86 11:14:0026[facility] TqbmuxrYGYHJWMTVMWS5933-48-57 11:14:00 3.5[facility] QrqrnbfDWJZAADOBTNW0321-97-69 11:14:0089[facility] HermannELECTROLYTES 2017-10-06 11:14:009[facility] QchsxjyFPVINJBLTT0230-73-02 11:14:0078.2[facility] JcawrwyJSLHBSLRQA8691-45-05 11:14:008.3[facility] SciznjlISPHHHFXXG3278-31-86 11:14:000.1[facility] IkbsjhqSXKRAVCWEU5324-02-27 11:14:0012.6[facility] [place] PDGRIKFLHV8257-67-81 11:14:000.8[facility] PxlgpfzCQHNCFWWAG3608-19-18 11:14:000.1 [facility] JdtqashNHUSFVKKXW4134-64-13 11:14:006.6[facility] HermannHEMATOLOGY 2017-10-06 11:14:000.7[facility] PmivygnAZBHGRKZSP0073-95-07 11:14:001.1[facility] TqsidjbHTQTBZTUPE9143-83-13 11:14:002.48[facility] JxrgkyeFLEOTDKWZB3955-58-43 11:14:008.5[facility] HjzwtjzXZYQEIXYSW7386-90-17 11:14:0022.2[facility] [place] YIXPBHMXGI1015-29-31 11:14:007.5[facility] GsjqysoKCMHHXZXBN8935-87-69 11:14:009.0 [facility] RcnowmnWACMWHYKJV3587-15-70 11:14:0033.7[facility] HermannHEMATOLOGY 2017-10-06 11:14:0015.7[facility] IerebhoPGZZEKROEJ4336-72-98 11:14:91669Tjlozysq JblhsjrWZPUCJYKDQ9864-87-57 11:14:0089.5[facility] IwvmllpXOYUAMQEOH4071-25-35 11:14:00 Test Item Value Reference Range Interpretation Comments MCH (test code = MCH) 30.2 pg 27.0-31.0 [facility]annCHE[facility] HVOJK2267-64-07 05:07:001.8[facility] HermannCHEM PANEL 2017-10-05 05:07:001.5[facility] HermannBLOOD BANK SOIIDWV2908-20-69 06:05:00 Negative (10/03/17 1:05 AM)[facility] HermannCHEM OQRLN7853-50-70 05:29:003.3 [facility]annCHEM FSMKC0584-94-91 05:29:002.3[facility] HermannHEMATOLOGY 2017-10-01 22:00:00Normal (10/01/17 5:00 PM)[facility] BnzlvrkVYDFSRAYUX3754-13-31 08:19:00 Test Item Value Reference Range Interpretation Comments PTT (test code = PTT) 29.5 s 22.9-35.8 [facility] AhjaagdRITLKHKCOG6050-63-61 08:19:00 Test Item Value Reference Range Interpretation Comments PT (test code = PT) 17.7 s 12.0-14.7 [facility] KyhfsakHQJTOXSCVK6855-04-98 08:19:00 Test Item Value Reference Range Interpretation Comments INR (test code = INR) 1.45 1 0.85-1.17 [facility] RLCE6298-04-89 08:03:00Negative (10/01/17 3:03 AM)[facility]annCHEM LVKYM9593-45-75 01:43:001.3[facility] HermannDRUG WRBRHF0703-60-24 14:54:54Negative *NA*(09/30/17 9:54 AM)[facility] HermannDRUG CURTEF7013-57-59 14:54:54Negative *NA*(09/30/17 9:54 AM)[facility] HermannDRUG BDIYLY3938-33-79 14:54:54See Note (09/30/17 9:54 AM)[facility] HermannDRUG XEHDVY5213-29-75 14:54:54 Negative *NA*(09/30/17 9:54 AM)[facility] HermannDRUG SGCRFJ4207-96-33 14:54:54 Negative *NA*(09/30/17 9:54 AM)[facility] HermannDRUG ASAWUA3022-07-98 14:54:54 Negative *NA*(09/30/17 9:54 AM)[facility] HermannDRUG JZTIRC8940-94-62 14:54:54 Negative *NA*(09/30/17 9:54 AM)[facility] HermannDRUG IFADJC3881-53-45 14:54:54 Negative *NA*(09/30/17 9:54 AM)[facility]annURINE AND DOZPZ6403-57-02 14:42:44 None Seen (09/30/17 9:42 AM)[facility] AND ASDDU2888-77-61 14:42:44 None Seen (09/30/17 9:42 AM)[facility] AND ZWXAW3570-26-90 14:42:440.2 [facility]annUR[facility] AND CFTSG4268-50-16 14:42:44Large *ABN*(09/30/17 9:42 AM) [facility] AND JXAUF8393-63-00 14:42:44Negative (09/30/17 9:42 AM) [facility] AND XPWBQ9354-23-53 14:42:44Negative (09/30/17 9:42 AM) [facility] AND ZQHKD5996-33-72 14:42:44Negative *NA*(09/30/17 9:42 AM) [facility] AND XKKJJ4498-44-99 14:42:44Negative *NA*(09/30/17 9:42 AM) [facility] AND RYBDT0975-61-96 14:42:44 Test Item Value Reference Range Interpretation Comments UA pH (test code = UA pH) 6.0 1 5.0-8.0 [facility]UR[facility] AND AQATK9454-35-90 14:42:44Slight Cloudy (09/30/17 9:42 AM)[facility]annUR[facility] AND LZOEH6167-10-47 14:42:44Yellow *NA*(09/30/17 9:42 AM)[facility]annUR[facility] AND ZVQYM8609-22-44 14:42:44 Test Item Value Reference Range Interpretation Comments UA Spec Grav (test code = UA Spec 1.010 1 Grav) [facility] ZDSJD6918-35-83 14:13:434.8[facility]END[facility]OLOG[facility] 2017-09-30 14:13:43Negative *NA*(09/30/17 9:13 AM)[facility] 2017-09-30 13:30:000.0[facility] XiqmemqQKKNIVQLTK7290-97-30 13:30:007.7[facility] UjkxnrxKECKXUDNTF9728-12-01 13:30:00 Test Item Value Reference Range Interpretation Comments Max Amplitude Rapid (test code = Max 61 mm 52-71 Amplitude Rapid) [facility]ressMrgihjpLJQNITWAKE4465-47-25 13:30:00 Test Item Value Reference Range Interpretation Comments K-time Rapid (test code = K-time 1.4 min 0.6-2.3 Rapid) [facility]ressOhfzktcNDFVLHWMYW5464-82-25 13:30:00 Test Item Value Reference Range Interpretation Comments R-time Rapid (test code = R-time 0.6 min 0.4-0.7 Rapid) [facility] LnudnhoYJQAUSYNVJ6285-22-05 13:30:00 Test Item Value Reference Range Interpretation Comments Angle Rapid (test code = Angle 73 degrees 64-80 Rapid) [facility] VkbulguNVVBZMIYSQ5598-23-73 13:30:00 Test Item Value Reference Range Interpretation Comments Split Point Rapid (test code = Split 0.5 min Point Rapid) [facility]ressMnhnhtiVSUMLTSGJR3282-88-95 13:30:00 Test Item Value Reference Range Interpretation Comments ACT (TEG) Rapid (test code = ACT (TEG) 105 s 86-118 Rapid) [facility]ressXjfwxszCPNXLZJBPM8614-46-01 13:30:000.1[facility] 2017-09-30 13:30:00Normal (09/30/17 8:30 AM)[facility]ressTnbwxfcOJRQSBSBVP9850-45-64 13:30:00Normal (09/30/17 8:30 AM)[facility] IMEOIUQ9411-90-07 13:25:27Negative (09/30/17 8:25 AM)[facility]
--- NOTE | 2020-01-25 13:44 | ER ---
Nurse's Notes [facility] Name: Gale Ga Age: 24 yrs Sex: Female : 1995 Arrival Date: 01/25/2020 Time: 11:18 Bed 25 Private MD: Diagnosis: Acute pharyngitis;Nausea Presentation: 01/24 11:59 Chief complaint: Patient states: "I have been sick for 2 weeks, I think it is strep.". jd3 Coronavirus screen: nausea, sore throat, Client presents with at least one sign or symptom that may indicate coronavirus-19. Standard/surgical mask placed on the client. Provider contacted for isolation considerations. At this time, the client does not indicate any symptoms associated with coronavirus-19. Ebola Screen: Patient negative for fever greater than or equal to 101.5 degrees Fahrenheit, and additional compatible Ebola Virus Disease symptoms. Initial Sepsis Screen: Does the patient meet any 2 criteria? No. Patient's initial sepsis screen is negative. Does the patient have a suspected source of infection? No. Patient's initial sepsis screen is negative. Risk Assessment: Do you want to hurt yourself or someone else? Patient reports no desire to harm self or others. Onset of symptoms was January 13, 2020. 11:59 Method Of Arrival: Ambulatory [facility] 11:59 Acuity: DEEJAY 4 jd3 Triage Assessment: 13:00 General: Appears in no apparent distress. Behavior is calm, cooperative. 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 - Social history:: Smoking status: Patient denies any tobacco usage or history of. Screenin:50 Abuse screen: Denies threats or abuse. Denies injuries from another. iw 13:50 Nutritional screening: No deficits noted. Tuberculosis screening: No symptoms or risk iw factors identified. Fall Risk None identified. Assessment: 13:00 General: Appears in no apparent distress. Behavior is calm, cooperative. Pain: iw Complains of pain in throat. Neuro: Level of Consciousness is awake, alert, obeys commands, Oriented to person, place, time, situation, Moves all extremities. Cardiovascular: Capillary refill < 3 seconds in bilateral fingers Patient's skin is warm and dry. Respiratory: Airway is patent Respiratory effort is even, unlabored, Breath sounds are clear bilaterally. GI: Reports nausea. EENT: Throat is reddened. Derm: Skin is intact, is healthy with good turgor. 13:50 Reassessment: Patient appears in no apparent distress at this time. Patient and/or iw family updated on plan of care and expected duration. Pain level reassessed. Patient is alert, oriented x 3, equal unlabored respirations, skin warm/dry/pink. Vital Signs: 12:01 BP 105 / 75; Pulse 82; Resp 16 S; Temp 97.6(TE); Pulse Ox 98% on R/A; Weight 49.44 kg jd3 (R); Height 5 ft. 3 in. (160.02 cm) (R); Pain 5/10; 12:01 Body Mass Index 19.31 (49.44 kg, 160.02 cm) jd3 ED Course: 11:18 Patient arrived in ED. as 12:00 Triage completed. jd3 12:03 Arm band placed on. jd3 12:07 Flu Sent. jd3 12:07 Strep Sent. jd3 12:58 Sudeep Sierra MD is Attending Physician. [facility] 13:00 Patient has correct armband on for positive identification. iw 13:08 Kelly Babb, RN is Primary Nurse. iw 13:42 Wai Alvarado MD is Referral Physician. [facility] 13:55 No provider procedures requiring assistance completed. Patient did not have IV access iw during this emergency room visit. Administered Medications: 13:55 Drug: Augmentin 875 mg Route: PO; iw Outcome: 13:44 Discharge ordered by MD. pk 13:55 Discharged to home ambulatory. iw 13:55 Condition: good 13:55 Discharge instructions given to patient, Instructed on discharge instructions, follow up and referral plans. medication usage, Demonstrated understanding of instructions, follow-up care, medications, Prescriptions given X 1. 13:56 Patient left the ED. iw Signatures: Sudeep Sierra MD MD cha Martinez, Amelia as Kelly Babb RN RN Adonis Hare RN RN jd3 Corrections: (The following items were deleted from the chart) 17:09 16:00 Abuse screen: Denies threats or abuse. Denies injuries from another. iw iw
--- NOTE | 2020-01-25 13:44 | EDPHYS ---
Physician Documentation [facility] Name: Gale Ga Age: 24 yrs Sex: Female : 1995 Arrival Date: 01/25/2020 Time: 11:18 Bed 25 Private MD: ED Physician Sudeep Sierra HPI: 01/24 13:36 This 24 yrs old Female presents to ER via Ambulatory with complaints of Sore pk Throat, Nausea, Headache, Abdominal Cramping. 13:36 The patient presents with sore throat. The patient describes throat pain as constant, pk raw, scratchy. Onset: The symptoms/episode began/occurred 10 day(s) ago. Severity of symptoms: At their worst the symptoms were mild, moderate, in the emergency department the symptoms have resolved. Modifying factors: The symptoms are alleviated by nothing. Associated signs and symptoms: The patient has no apparent associated signs or symptoms. The patient has not experienced similar symptoms in the past. 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 - Social history:: Smoking status: Patient denies any tobacco usage or history of. ROS: 13:38 Constitutional: Negative for fever, chills, and weight loss, Eyes: Negative for injury, pk pain, redness, and discharge, Neck: Negative for injury, pain, and swelling, Cardiovascular: Negative for chest pain, palpitations, and edema, Respiratory: Negative for shortness of breath, cough, wheezing, and pleuritic chest pain, Back: Negative for injury and pain, : Negative for injury, bleeding, discharge, and swelling, MS/Extremity: Negative for injury and deformity, Skin: Negative for injury, rash, and discoloration, Neuro: Negative for headache, weakness, numbness, tingling, and seizure, Psych: Negative for depression, anxiety, suicide ideation, homicidal ideation, and hallucinations, Allergy/Immunology: Negative for hives, rash, and allergies, Endocrine: Negative for neck swelling, polydipsia, polyuria, polyphagia, and marked weight changes, Hematologic/Lymphatic: Negative for swollen nodes, abnormal bleeding, and unusual bruising. 13:38 Abdomen/GI: Positive for abdominal pain, nausea. Exam: 13:38 Constitutional: This is a well developed, well nourished patient who is awake, alert, pk and in no acute distress. Head/Face: Normocephalic, atraumatic. Eyes: Pupils equal round and reactive to light, extra-ocular motions intact. Lids and lashes normal. Conjunctiva and sclera are non-icteric and not injected. Cornea within normal limits. Periorbital areas with no swelling, redness, or edema. Neck: Trachea midline, no thyromegaly or masses palpated, and no cervical lymphadenopathy. Supple, full range of motion without nuchal rigidity, or vertebral point tenderness. No Meningismus. Chest/axilla: Normal chest wall appearance and motion. Nontender with no deformity. No lesions are appreciated. Cardiovascular: Regular rate and rhythm with a normal S1 and S2. No gallops, murmurs, or rubs. Normal PMI, no JVD. No pulse deficits. Respiratory: Lungs have equal breath sounds bilaterally, clear to auscultation and percussion. No rales, rhonchi or wheezes noted. No increased work of breathing, no retractions or nasal flaring. Back: No spinal tenderness. No costovertebral tenderness. Full range of motion. Skin: Warm, dry with normal turgor. Normal color with no rashes, no lesions, and no evidence of cellulitis. MS/ Extremity: Pulses equal, no cyanosis. Neurovascular intact. Full, normal range of motion. Neuro: Awake and alert, GCS 15, oriented to person, place, time, and situation. Cranial nerves II-XII grossly intact. Motor strength 5/5 in all extremities. Sensory grossly intact. Cerebellar exam normal. Normal gait. Psych: Awake, alert, with orientation to person, place and time. Behavior, mood, and affect are within normal limits. 13:38 Abdomen/GI: Inspection: distension, Bowel sounds: normal. Vital Signs: 12:01 BP 105 / 75; Pulse 82; Resp 16 S; Temp 97.6(TE); Pulse Ox 98% on R/A; Weight 49.44 kg jd3 (R); Height 5 ft. 3 in. (160.02 cm) (R); Pain 5/10; 12:01 Body Mass Index 19.31 (49.44 kg, 160.02 cm) jd3 MDM: 12:59 Patient medically screened. pk 01/24 12:04 Order name: Strep; Complete Time: 13:35 jd3 01/24 12:04 Order name: Flu; Complete Time: 13:35 jd3 01/24 12:34 Order name: Throat Culture EDMT Administered Medications: 13:55 Drug: Augmentin 875 mg Route: PO; iw Disposition: 01/25/20 13:44 Discharged to Home. Impression: Acute pharyngitis, Nausea. - Condition is Stable. - Discharge Instructions: Nausea and Vomiting, Adult, Nausea, Adult, Pharyngitis, Nausea and Vomiting, Adult, [id number], Pharyngitis, [id number], Sore Throat, [id number]. - Prescriptions for Augmentin 500- 125 mg Oral Tablet - take 1 tablet by ORAL route every 8 hours for 10 days; 21 tablet. - Medication Reconciliation Form, Thank You Letter, Antibiotic Education, Prescription Opioid Use form. - Follow up: Private Physician; When: 2 - 3 days; Reason: Recheck today's complaints, Continuance of care, Re-evaluation by your physician. Follow up: Wai Alvarado MD; When: 2 - 3 days; Reason: Recheck today's complaints, Re-evaluation by your physician. - Problem is new. - Symptoms have improved. Signatures: Dispatcher [employer] EDMT Sudeep Sierra MD MD cha Williams, Irene RN Adonis Hawkins RN RN jd3 Corrections: (The following items were deleted from the chart) 13:56 13:44 01/25/2020 13:44 Discharged to Home. Impression: Acute pharyngitis; Nausea. iw Condition is Stable. Forms are Medication Reconciliation Form, Thank You Letter, Antibiotic Education, Prescription Opioid Use. Follow up: Private Physician; When: 2 - 3 days; Reason: Recheck today's complaints, Continuance of care, Re-evaluation by your physician. Follow up: Wai Alvarado; When: 2 - 3 days; Reason: Recheck today's complaints, Re-evaluation by your physician. Problem is new. Symptoms have improved. kp
[2020-01-25] MEDS ORDERED: AMOX/K CLAV 875 MG TAB ONE (14:06)
[2020-01-25 14:21] VITALS: BP 105/75; TEMP 97.6; O2SAT 98
== END 2020-01-25 13:56 | disposition home or self-care (01) ==
LOC: ER 11:16
DX: J02.9 Acute pharyngitis, unspecified (principal); R11.0 Nausea
CPT/HCPCS: 87070; 87081; 87804; 99283